=== PATIENT | male | born 1960 | race Caucasian/White ===

== ENCOUNTER → 2021-12-20 | Outpatient (REF) | payer MEDICARE, MEDICAID, OTHER ==
[~2021-12-20] MED LIST: ADV250INH INH; ADVA230INH INH; ALBU0.084 NEB; ALBUTEROL INHL INH; ALBUTEROL NEBULIZER INH; AMLO1TAB24 PO; ASPI81TA26 PO; ASPI81TA4 PO; ATEN25TA PO; AZEL0.1S3; CART120C PO; COZA100T2 PO; CYMB60CA3 PO; CYMB60CA4 PO; DO NOT TAKE; IBUP600T26 PO; LASI20TA3 PO; LEVA750T7 PO; LOSA100T36 PO; LOSA50TA28 PO; LOSARTAN PO; MAPA500T17 PO; MICR10CA PO; NASA0.057; NEUR300C PO; OMEP40CA2 PO; OXYC10TA3 PO; PRED-351 PO; PRED50TA PO; PROAAER10 INH; SALI0.6528; SIMV10TA2 PO; TYLE325T5 PO; VENTAER INH; ZITH250T PO; ZITHROMAX PO
== END ==
LOC: M SMT 10:15
PROVIDERS: ATTEND Urology
DX: C61 Malignant neoplasm of prostate (principal)

== ENCOUNTER → 2022-01-26 | Outpatient (CLI) | payer OTHER, MEDICARE, MEDICAID | LOC: M PLAIMG 13:04 | PROVIDERS: ATTEND Urology | DX: C61 Malignant neoplasm of prostate (principal) ==

== ENCOUNTER → 2022-02-21 | Outpatient (CLI) | payer MEDICARE ==
[~2022-02-21] MED LIST changes: +PROHANCE 279.3MG/ML 15ML VIAL ONE; +PROHANCE 279.3MG/ML 5ML VIAL ONE
== END ==
LOC: M PLAIMG 09:21
PROVIDERS: ATTEND Urology
DX: C61 Malignant neoplasm of prostate (principal); Q74.2 Other congenital malformations of lower limb(s), including pelvic girdle
CPT/HCPCS: 73720; A9576

== ENCOUNTER 2022-04-10 12:29 | Emergency (ER) | payer MEDICARE, MEDICAID, OTHER ==
[~2022-04-10] VITALS: Ht 170.2 cm; Wt 132.7 kg
[~2022-04-10 12:29] MED LIST changes: -PROHANCE 279.3MG/ML 15ML VIAL ONE; -PROHANCE 279.3MG/ML 5ML VIAL ONE
[2022-04-10 12:30] VITALS: BP 140/90
[2022-04-10] MEDS ORDERED: NITR-67 PO (15:52)
== END 2022-04-10 16:04 | disposition home or self-care (01) ==
LOC: M ED 12:29
DX: N39.0 Urinary tract infection, site not specified (principal); I10 Essential (primary) hypertension; E78.5 Hyperlipidemia, unspecified; K21.9 Gastro-esophageal reflux disease without esophagitis; M54.50 Low back pain, unspecified; C61 Malignant neoplasm of prostate; F32.A Depression, unspecified; Z79.51 Long term (current) use of inhaled steroids; Z79.811 Long term (current) use of aromatase inhibitors; Z79.899 Other long term (current) drug therapy; Z79.82 Long term (current) use of aspirin

== ENCOUNTER → 2022-04-25 | Outpatient (CLI) | payer OTHER, MEDICARE ==
[~2022-04-25] MED LIST changes: +CIPR750T2 PO; +LORA1TAB4 PO; +NITR-67 PO
== END ==
LOC: M ONCR 14:31
PROVIDERS: ATTEND General Practice
DX: C61 Malignant neoplasm of prostate (principal)

== ENCOUNTER → 2022-06-01 | Outpatient (CLI) | payer MEDICARE ==
[~2022-06-01] MED LIST changes: +BACTDSTA PO; +LIDOCAINE 2% MDV 20ML VIAL XX ONE; +LIDOCAINE VISCOUS 2% SOLN 15ML UDC XX ONE
[2022-06-01 15:05] VITALS: BP 116/79
== END ==
LOC: M ONCR 13:57
PROVIDERS: ATTEND General Practice
DX: C61 Malignant neoplasm of prostate (principal)
CPT/HCPCS: 55874; 55876; A4648; C1889

== ENCOUNTER 2022-12-12 11:18 | Day surgery (SDC) | payer MEDICARE, MEDICAID ==
[~2022-12-12] VITALS: Ht 170.2 cm; Wt 128.8 kg
[~2022-12-12 11:18] MED LIST changes: +ACET1TAB55 PO; +CLOP75TA99 PO; +COSE1INJ SC; -COZA100T2 PO; +COZA100T3 PO; -LIDOCAINE 2% MDV 20ML VIAL XX ONE; -LIDOCAINE VISCOUS 2% SOLN 15ML UDC XX ONE; +LORA1TAB23 PO; -LORA1TAB4 PO; +NS 1,000 ML IV ONE; +OMEP40CA4 PO; +PROA1AER2 IN; +SHOT INJ; +SIMV10TA21 PO; +SUPECAP14 PO; +VITA100093 PO; +VITMTA PO
[2022-12-12 15:42] VITALS: BP 111/58; TEMP 96.6; O2SAT 96
== END 2022-12-12 15:46 | disposition home or self-care (01) ==
LOC: M OPP 11:18
PROVIDERS: ATTEND Internal Medicine Gastroenterology
DX: R10.13 Epigastric pain (principal); Z79.02 Long term (current) use of antithrombotics/antiplatelets; Z79.1 Long term (current) use of non-steroidal anti-inflammatories (NSAID); Z79.51 Long term (current) use of inhaled steroids; Z79.899 Other long term (current) drug therapy; Z88.1 Allergy status to other antibiotic agents; Z88.5 Allergy status to narcotic agent

== ENCOUNTER 2023-11-26 12:21 | Day surgery (SDC) | payer MEDICARE, MEDICAID ==
[~2023-11-26] VITALS: Ht 170.2 cm; Wt 126.6 kg
[~2023-11-26 12:21] MED LIST changes: -COZA100T3 PO; +LOSA-530 PO; +METF500T13 PO; -NS 1,000 ML IV ONE; -PROA1AER2 IN; +PROA1AER2 INH; +ROSU20TA61 PO; +THERTAB52 PO; +[UNRECOGNIZED DRUG - REMARK] PO
[2023-11-26] MEDS ORDERED: RELU120T PO (13:55)
[2023-11-26] MEDS ORDERED: LR 1,000 ML IV SCH ×2 (14:00→17:00)
[2023-11-26] MEDS: ceFAZolin SOD 2 GM in IV 1 EA IV ONE (15:50)
[2023-11-26] MEDS: ceFAZolin SOD 1 GM in D5W MINI-BAG PLUS 50 ML IV ONE (15:50)
[2023-11-26] MEDS ORDERED: ACETAMINOPHEN 1000MG 100ML IV BAG As Ordered ONE (16:14)
[2023-11-26] MEDS ORDERED: dexmedeTOMIDine (4MCG/ML)200MCG/50ML BTL (PRECEDEX) As Ordered ONE (16:14)
[2023-11-26] MEDS ORDERED: fentaNYL 100 MCG/2 ML INJECTION As Ordered ONE (16:14)
[2023-11-26] MEDS ORDERED: propofoL 200 MG/20 ML VIAL As Ordered ONE (16:14)
[2023-11-26] MEDS ORDERED: DESFLURANE 240 ML INHALANT As Ordered ONE (16:14)
[2023-11-26] MEDS ORDERED: METOCLOPRAMIDE INJ 10MG/2ML VIAL As Ordered ONE (16:14)
[2023-11-26] MEDS ORDERED: PHENYLephrine 500MCG 5ML (100MCG/ML) SYRINGE As Ordered ONE (16:14)
[2023-11-26] MEDS ORDERED: MIDAZOLAM INJ 2MG/2ML VIAL As Ordered ONE (16:14)
[2023-11-26] MEDS ORDERED: ONDANSETRON 4MG 2ML VIAL As Ordered ONE (16:14)
[2023-11-26] MEDS ORDERED: LIDOCAINE 2% 100MG/5ML SDV (FOR ANES.) As Ordered ONE (16:14)
[2023-11-26] MEDS: BACITRACIN OINTMENT 30GM TUBE As Ordered ONE (16:50)
[2023-11-26] MEDS ORDERED: ONDANSETRON 4MG 2ML VIAL IV PRN (17:00)
[2023-11-26] MEDS: oxyCODONE 5MG TAB PO PRN (17:16)
[2023-11-26] MEDS ORDERED: OXYC1TAB23 PO (17:18)
[2023-11-26] MEDS: HYDROMORPHONE HCL 0.5 MG/ 0.5 ML SYRINGE IV PRN (17:20)
[2023-11-26 18:02] VITALS: BP 127/65; TEMP 97.6; O2SAT 97
== END 2023-11-26 18:23 | disposition home or self-care (01) ==
LOC: M SDC 12:21
PROVIDERS: ATTEND Urology
DX: N48.1 Balanitis (principal); E11.9 Type 2 diabetes mellitus without complications; I10 Essential (primary) hypertension; E78.00 Pure hypercholesterolemia, unspecified; Z85.46 Personal history of malignant neoplasm of prostate; Z92.3 Personal history of irradiation; Z92.21 Personal history of antineoplastic chemotherapy; Z86.73 Personal history of transient ischemic attack (TIA), and cerebral infarction without residual deficits; Z79.899 Other long term (current) drug therapy; Z79.84 Long term (current) use of oral hypoglycemic drugs; Z79.02 Long term (current) use of antithrombotics/antiplatelets; Z88.5 Allergy status to narcotic agent; Z91.018 Allergy to other foods
CPT/HCPCS: 54161; 88304; J0131; J0690; J1100; J1170; J2250; J2371; J2405; J2765; J3010

== ENCOUNTER 2023-12-05 07:25 | Emergency (ER) | payer MEDICARE, MEDICAID ==
[~2023-12-05] VITALS: Ht 170.2 cm; Wt 127.7 kg
[~2023-12-05 07:25] MED LIST changes: +OXYC1TAB23 PO; +RELU120T PO
[2023-12-05] MEDS ORDERED: CEPH500C (09:51)
[2023-12-05] MEDS: NEOSPORIN TOP OINT 15GM TOP STA (11:21)
[2023-12-05 12:00] VITALS: BP 102/62; TEMP 97.5; O2SAT 96
== END 2023-12-05 12:01 | disposition home or self-care (01) ==
LOC: M ED 07:25
DX: G89.18 Other acute postprocedural pain (principal); E11.9 Type 2 diabetes mellitus without complications; I10 Essential (primary) hypertension; E78.5 Hyperlipidemia, unspecified; K21.9 Gastro-esophageal reflux disease without esophagitis; Z85.46 Personal history of malignant neoplasm of prostate; Z88.1 Allergy status to other antibiotic agents; Z88.8 Allergy status to other drugs, medicaments and biological substances; Z91.018 Allergy to other foods; Z91.09 Other allergy status, other than to drugs and biological substances; Z79.1 Long term (current) use of non-steroidal anti-inflammatories (NSAID); Z79.51 Long term (current) use of inhaled steroids; Z79.84 Long term (current) use of oral hypoglycemic drugs; Z79.810 Long term (current) use of selective estrogen receptor modulators (SERMs); Z79.899 Other long term (current) drug therapy

== ENCOUNTER → 2024-04-10 | Outpatient (REF) | payer MEDICARE, MEDICAID ==
[~2024-04-10] MED LIST changes: -ADV250INH INH; +ADVA1AER9 INH; +CEPH500C; +DIFI200T PO; +FAMO40TA3; +FARX1TAB5; +LEVOTAB10; +MONT10TA97; +PANT20TA6; -ROSU20TA61 PO; +ROSU20TA86 PO
== END ==
LOC: M LAB REF 07:37
PROVIDERS: ATTEND Physician Assistant Medical
DX: R19.4 Change in bowel habit (principal); R19.7 Diarrhea, unspecified; A04.72 Enterocolitis due to Clostridium difficile, not specified as recurrent

== ENCOUNTER 2024-04-13 17:58 | Emergency (ER) | payer MEDICARE, MEDICAID ==
[~2024-04-13] VITALS: Ht 170.2 cm; Wt 117.6 kg
[~2024-04-13 17:58] MED LIST changes: -DIFI200T PO; -FAMO40TA3; -FARX1TAB5; -LEVOTAB10; -MONT10TA97; -PANT20TA6
[2024-04-13 18:00] VITALS: BP 111/72; TEMP 97.8; O2SAT 95
[2024-04-13] MEDS ORDERED: FAMO40TA3 (18:21)
[2024-04-13] MEDS ORDERED: FARX1TAB5 (18:21)
[2024-04-13] MEDS ORDERED: MONT10TA97 (18:21)
[2024-04-13] MEDS ORDERED: PANT20TA6 (18:21)
[2024-04-13] MEDS ORDERED: LEVOTAB10 (18:21)
[2024-04-13 19:02] LABS: BASO % 0.3 % (0.0-1.0); EOS # 0.2 10^3/uL (0.0-0.5); EOS % 1.2 % (0.0-3.0); HEMATOCRIT 43.3 % (42.0-52.0); HEMOGLOBIN 14.7 g/dl (13.5-17.5); LYMPH # 1.4 10^3/uL (1.5-5.0); LYMPH % 10.6 % (24.0-44.0); MEAN CORPUSCULAR HEMOGLOBIN 31.5 pg (27.0-33.0); MEAN CORPUSCULAR HGB CONC 33.9 g/dl (32.0-36.5); MEAN CORPUSCULAR VOLUME 92.9 fl (80.0-96.0); MONO # 1.4 10^3/uL (0.0-0.8); MONO % 10.8 % (2.0-8.0); NEUTROPHILS # 10.1 10^3/uL (1.5-8.5); NEUTROPHILS % 76.7 % (36.0-66.0); PLATELET COUNT, AUTOMATED 266 10^3/uL (150-450); RED BLOOD COUNT 4.66 10^6/uL (4.30-6.10); WHITE BLOOD COUNT 13.1 10^3/uL (4.0-10.0)
[2024-04-13 19:25] LABS: LIPASE 20 U/L (12-53)
[2024-04-13 19:27] LABS: ALBUMIN 3.5 G/DL (3.2-5.2); ALKALINE PHOSPHATASE 68 U/L (40-129); ALT/SGPT 48 U/L (7.0-40); AST/SGOT 36 U/L (<34); BILIRUBIN,DIRECT 0.2 MG/DL (<0.4); BILIRUBIN,TOTAL 0.6 MG/DL (0.3-1.2); TOTAL PROTEIN 6.9 G/DL (5.7-8.2)
[2024-04-13] MEDS ORDERED: ISOVUE-370 76% 100ML VIAL As Ordered ONE (19:34)
[2024-04-13] MEDS: ONDANSETRON 4MG 2ML VIAL IV ONE (19:40)
[2024-04-13] MEDS: PANTOPRAZOLE 40MG VIAL IV ONE (19:41)
[2024-04-13 19:48] LABS: CK-MB VALUE MASS < 1.0 NG/ML (<3.6)
[2024-04-13 19:49] LABS: CPK CREATINE PHOSPHOKINASE 123 U/L (46-171); MB/CK RELATIVE INDEX 0.81 (< OR =4)
[2024-04-13 20:54] LABS: CK-MB VALUE MASS < 1.0 NG/ML (<3.6)
[2024-04-13 20:57] LABS: CPK CREATINE PHOSPHOKINASE 79 U/L (46-171); MB/CK RELATIVE INDEX 1.26 (< OR =4)
[2024-04-13] MEDS ORDERED: DIFI200T PO (22:02)
[2024-04-13] MEDS: FIDAXOMICIN 200 MG TAB (DIFICID) PO STA (22:25)
== END 2024-04-13 22:29 | disposition home or self-care (01) ==
LOC: M ED 17:58
DX: A04.72 Enterocolitis due to Clostridium difficile, not specified as recurrent (principal); C61 Malignant neoplasm of prostate; E78.5 Hyperlipidemia, unspecified; I10 Essential (primary) hypertension; E11.9 Type 2 diabetes mellitus without complications; K76.0 Fatty (change of) liver, not elsewhere classified; Z91.018 Allergy to other foods; Z88.8 Allergy status to other drugs, medicaments and biological substances; Z91.048 Other nonmedicinal substance allergy status; Z86.73 Personal history of transient ischemic attack (TIA), and cerebral infarction without residual deficits; Z79.52 Long term (current) use of systemic steroids; Z79.4 Long term (current) use of insulin; Z79.2 Long term (current) use of antibiotics; Z79.899 Other long term (current) drug therapy
CPT/HCPCS: 36415; 71045; 74177; 80047; 80076; 81001; 82550; 82553; 83690; 84484; 85025; 93005; 96374; 96375; 99284; J2405; J2470; Q9967

== ENCOUNTER 2024-04-15 09:31 | Emergency (ER) | payer MEDICAID, MEDICARE ==
[~2024-04-15] VITALS: Ht 170.2 cm; Wt 116.3 kg
[~2024-04-15 09:31] MED LIST changes: +DIFI200T PO; +FAMO40TA3; +FARX1TAB5; +LEVOTAB10; +MONT10TA97; +PANT20TA6
[2024-04-15 09:39] VITALS: TEMP 97.4
[2024-04-15 13:19] LABS: BASO % 0.2 % (0.0-1.0); EOS # 0.1 10^3/uL (0.0-0.5); EOS % 1.1 % (0.0-3.0); HEMATOCRIT 43.2 % (42.0-52.0); HEMOGLOBIN 14.4 g/dl (13.5-17.5); LYMPH % 7.8 % (24.0-44.0); MEAN CORPUSCULAR HEMOGLOBIN 31.6 pg (27.0-33.0); MEAN CORPUSCULAR HGB CONC 33.3 g/dl (32.0-36.5); MEAN CORPUSCULAR VOLUME 94.7 fl (80.0-96.0); MONO # 1.1 10^3/uL (0.0-0.8); MONO % 8.1 % (2.0-8.0); NEUTROPHILS # 10.7 10^3/uL (1.5-8.5); NEUTROPHILS % 82.3 % (36.0-66.0); PLATELET COUNT, AUTOMATED 270 10^3/uL (150-450); RED BLOOD COUNT 4.56 10^6/uL (4.30-6.10)
[2024-04-15] MEDS: ACETAMINOPHEN *IV* 1,000 MG in IV 1 EA IV ONE (13:29)
[2024-04-15 14:38] LABS: LIPASE 23 U/L (12-53)
[2024-04-15 14:44] LABS: ALBUMIN 3.2 G/DL (3.2-5.2); ALKALINE PHOSPHATASE 61 U/L (40-129); ALT/SGPT 39 U/L (7.0-40); AST/SGOT 34 U/L (<34); BILIRUBIN,DIRECT 0.2 MG/DL (<0.4); BILIRUBIN,TOTAL 0.6 MG/DL (0.3-1.2); BLOOD UREA NITROGEN 14 MG/DL (9-23); CALCIUM LEVEL 9.3 MG/DL (8.3-10.6); CARBON DIOXIDE LEVEL 30 MMOL/L (20-31); CHLORIDE LEVEL 103 MMOL/L (98-107); GLOMERULAR FILTRATION RATE > 60.0 (>49); GLUCOSE, FASTING 104 MG/DL (74-106); MAGNESIUM LEVEL 2.4 MG/DL (1.8-2.4); POTASSIUM SERUM 4.6 MMOL/L (3.5-5.1); SODIUM LEVEL 141 MMOL/L (136-145); TOTAL PROTEIN 6.5 G/DL (5.7-8.2)
[2024-04-15 15:15] VITALS: BP 107/63; O2SAT 95
[2024-04-15] MEDS: FIDAXOMICIN 200 MG TAB (DIFICID) PO ONE (15:18)
== END 2024-04-15 15:23 | disposition home or self-care (01) ==
LOC: M ED 09:31
DX: A04.72 Enterocolitis due to Clostridium difficile, not specified as recurrent (principal); E11.9 Type 2 diabetes mellitus without complications; J44.9 Chronic obstructive pulmonary disease, unspecified; I10 Essential (primary) hypertension; Z79.52 Long term (current) use of systemic steroids; Z79.4 Long term (current) use of insulin; Z79.899 Other long term (current) drug therapy; Z91.018 Allergy to other foods; Z88.8 Allergy status to other drugs, medicaments and biological substances; Z91.048 Other nonmedicinal substance allergy status
CPT/HCPCS: 74021; 80048; 80076; 83690; 83735; 85025; 96365; 96366; 99284; J0131

== ENCOUNTER → 2024-05-01 | Day surgery (SDC) | payer MEDICARE, MEDICAID ==
[~2024-05-01] VITALS: Ht 170.2 cm; Wt 121.1 kg
== END | disposition home or self-care (01) ==
LOC: M OPP 09:00
PROVIDERS: ATTEND Internal Medicine Gastroenterology
DX: R10.9 Unspecified abdominal pain (principal); Z53.8 Procedure and treatment not carried out for other reasons

== ENCOUNTER 2024-05-20 11:37 | Day surgery (SDC) | payer MEDICAID, MEDICARE ==
[~2024-05-20] VITALS: Ht 170.2 cm; Wt 112.0 kg
[~2024-05-20 11:37] MED LIST changes: +LIDOCAINE 2% 100MG/5ML SDV (FOR ANES.) As Ordered ONE; +propofoL 200 MG/20 ML VIAL As Ordered ONE
[2024-05-20 14:10] VITALS: BP 117/72; O2SAT 94
== END 2024-05-20 14:49 | disposition home or self-care (01) ==
LOC: M OPP 11:37
PROVIDERS: ATTEND Internal Medicine Gastroenterology
DX: R93.3 Abnormal findings on diagnostic imaging of other parts of digestive tract (principal); K59.00 Constipation, unspecified; K57.30 Diverticulosis of large intestine without perforation or abscess without bleeding; K64.8 Other hemorrhoids; Z79.02 Long term (current) use of antithrombotics/antiplatelets; R63.4 Abnormal weight loss; Z88.5 Allergy status to narcotic agent; Z91.09 Other allergy status, other than to drugs and biological substances; Z91.018 Allergy to other foods; Z79.84 Long term (current) use of oral hypoglycemic drugs; Z79.51 Long term (current) use of inhaled steroids; Z79.899 Other long term (current) drug therapy

== ENCOUNTER → 2024-06-23 | Outpatient (REF) | payer MEDICARE, MEDICAID ==
[~2024-06-23] MED LIST changes: -LIDOCAINE 2% 100MG/5ML SDV (FOR ANES.) As Ordered ONE; -propofoL 200 MG/20 ML VIAL As Ordered ONE
== END ==
LOC: M LAB REF 15:04
PROVIDERS: ATTEND Physician Assistant Medical
DX: R63.4 Abnormal weight loss (principal)

== ENCOUNTER 2024-08-29 15:51 | Emergency (ER) | payer MEDICARE, MEDICAID ==
[~2024-08-29] VITALS: Ht 170.2 cm; Wt 115.8 kg
[2024-08-29 17:18] LABS: BASO # 0.1 10^3/uL (0.0-0.2); BASO % 0.8 % (0.0-1.0); EOS # 0.2 10^3/uL (0.0-0.5); HEMATOCRIT 43.8 % (42.0-52.0); LYMPH # 1.3 10^3/uL (1.5-5.0); LYMPH % 19.4 % (24.0-44.0); MEAN CORPUSCULAR HEMOGLOBIN 32.1 pg (27.0-33.0); MEAN CORPUSCULAR HGB CONC 34.2 g/dl (32.0-36.5); MEAN CORPUSCULAR VOLUME 93.8 fl (80.0-96.0); MONO % 14.3 % (2.0-8.0); NEUTROPHILS # 4.1 10^3/uL (1.5-8.5); PLATELET COUNT, AUTOMATED 264 10^3/uL (150-450); RED BLOOD COUNT 4.67 10^6/uL (4.30-6.10); WHITE BLOOD COUNT 6.7 10^3/uL (4.0-10.0)
[2024-08-29 17:40] LABS: LIPASE 23 U/L (12-53)
[2024-08-29 17:42] LABS: ALKALINE PHOSPHATASE 88 U/L (40-129); ALT/SGPT 49 U/L (7.0-40); AST/SGOT 39 U/L (<34); BILIRUBIN,DIRECT 0.1 MG/DL (<0.4); BILIRUBIN,TOTAL 0.4 MG/DL (0.3-1.2); BLOOD UREA NITROGEN 17 MG/DL (9-23); CALCIUM LEVEL 9.7 MG/DL (8.3-10.6); CARBON DIOXIDE LEVEL 28 MMOL/L (20-31); CHLORIDE LEVEL 104 MMOL/L (98-107); CREATININE FOR GFR 0.68 MG/DL (0.70-1.30); GLOMERULAR FILTRATION RATE > 90.0 (>49); GLUCOSE, FASTING 102 MG/DL (74-106); POTASSIUM SERUM 4.2 MMOL/L (3.5-5.1); SODIUM LEVEL 142 MMOL/L (136-145); TOTAL PROTEIN 7.3 G/DL (5.7-8.2)
[2024-08-29 18:29] LABS: APPEARANCE, URINE HAZY (CLEAR); BACTERIA, URINE AUTO NEGATIVE (NEGATIVE); BILIRUBIN, URINE AUTO NEGATIVE (NEGATIVE); BLOOD, URINE BLOOD NEGATIVE (NEGATIVE); COLOR, URINE AMBER (YELLOW); GLUCOSE, URINE (UA) AUTO 3+ mg/dL (NEGATIVE); KETONE, URINE AUTO NEGATIVE (NEGATIVE); LEUKOCYTE ESTERASE, URINE AUTO NEGATIVE (NEGATIVE); MUCUS, URINE SMALL (NEGATIVE); NITRITE, URINE AUTO NEGATIVE (NEGATIVE); PROTEIN, URINE AUTO NEGATIVE (NEGATIVE); RBC, URINE AUTO 0 /HPF (0-3); SPECIFIC GRAVITY URINE AUTO 1.029 (1.002-1.035); SQUAMOUS EPITHELIAL CELL UR AU 0 /HPF (0-6); UROBILINOGEN, URINE AUTO 0.2 mg/dL (0.0-2.0); WBC, URINE AUTO 1 /HPF (0-3)
[2024-08-29] MEDS ORDERED: ISOVUE-370 76% 100ML VIAL As Ordered ONE (19:00)
[2024-08-29 20:46] VITALS: BP 112/83; TEMP 96.9; O2SAT 97
[2024-08-29] MEDS: MAGNESIUM CITRATE 300ML BTL PO ONE (20:48)
== END 2024-08-29 20:54 | disposition home or self-care (01) ==
LOC: M ED 15:51
DX: K59.00 Constipation, unspecified (principal); I10 Essential (primary) hypertension; E11.9 Type 2 diabetes mellitus without complications; I63.9 Cerebral infarction, unspecified; M85.80 Other specified disorders of bone density and structure, unspecified site; R16.0 Hepatomegaly, not elsewhere classified; Z79.1 Long term (current) use of non-steroidal anti-inflammatories (NSAID); Z79.51 Long term (current) use of inhaled steroids; Z79.899 Other long term (current) drug therapy; Z79.02 Long term (current) use of antithrombotics/antiplatelets; Z79.84 Long term (current) use of oral hypoglycemic drugs; Z79.811 Long term (current) use of aromatase inhibitors; Z79.818 Long term (current) use of other agents affecting estrogen receptors and estrogen levels; Z79.621 Long term (current) use of calcineurin inhibitor; Z79.620 Long term (current) use of immunosuppressive biologic; Z91.018 Allergy to other foods; Z91.048 Other nonmedicinal substance allergy status; Z88.0 Allergy status to penicillin; Z88.8 Allergy status to other drugs, medicaments and biological substances; Z88.1 Allergy status to other antibiotic agents; Z88.6 Allergy status to analgesic agent; Z88.5 Allergy status to narcotic agent
CPT/HCPCS: 36415; 74177; 80048; 80076; 81001; 83690; 85025; 99284; Q9967

== ENCOUNTER → 2024-09-17 | Outpatient (CLI) | payer MEDICARE, MEDICAID ==
[2024-09-17 09:52] LABS: ALBUMIN 3.8 G/DL (3.2-5.2); ALKALINE PHOSPHATASE 76 U/L (40-129); ALT/SGPT 39 U/L (7.0-40); AST/SGOT 30 U/L (<34); BILIRUBIN,DIRECT 0.2 MG/DL (<0.4); BILIRUBIN,TOTAL 0.6 MG/DL (0.3-1.2); IRON (FE) 76 UG/DL (65-175); PERCENT SATURATION 24.5 % (19.7-50.0); TOTAL IRON BINDING CAPACITY 310 UG/DL (250-425); TOTAL PROTEIN 6.9 G/DL (5.7-8.2)
[2024-09-17 09:53] LABS: FERRITIN 205.9 NG/ML (10.5-307.3)
[2024-09-17 10:19] LABS: HEPATITIS B SURFACE ANTIGEN NEGATIVE (NEGATIVE)
[2024-09-17 10:39] LABS: HEPATITIS B CORE ANTIBODY IGM NEGATIVE (NEGATIVE)
[2024-09-17 10:40] LABS: HEPATITIS C VIRUS ABY INDEX < 0.02 INDEX (<0.8)
[2024-09-19 15:32] LABS: ANA SCREEN, IFA NEGATIVE (NEGATIVE)
== END ==
LOC: M PLALAB 07:35 → M RAD 07:35
PROVIDERS: ATTEND Physician Assistant Medical
DX: R16.0 Hepatomegaly, not elsewhere classified (principal); R10.32 Left lower quadrant pain; R74.01 Elevation of levels of liver transaminase levels; R10.12 Left upper quadrant pain